=== PATIENT | female | born 1975 | race Caucasian/White ===

== ENCOUNTER 2021-02-23 08:09 | Emergency (ER) | payer SELFPAY ==
[~2021-02-23] VITALS: Ht 170.2 cm; Wt 54.4 kg
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
[2021-02-23] MEDS ORDERED: KETOROLAC TROMETHAMINE 15 MG/ML VIAL ONE (09:57)
[2021-02-23] MEDS ORDERED: KETOROLAC TROMETHAMINE INJ 30 MG/ML VIAL IM ONE (10:00)
[2021-02-23] MEDS ORDERED: IBUP-1955 PO (10:23)
[2021-02-23] MEDS ORDERED: CYCL5TAB PO (10:23)
--- NOTE | 2021-02-23 10:59 | NUR ---
Patient discharged to home in stable condition. Written and verbal after care instructions given. Patient verbalizes understanding of instruction.
[2021-02-23 11:10] VITALS: BP 116/78
== END 2021-02-23 11:11 | disposition home or self-care (01) ==
LOC: ER 08:21
DX: S20.212A Contusion of left front wall of thorax, initial encounter (principal); S40.812A Abrasion of left upper arm, initial encounter; S09.90XA Unspecified injury of head, initial encounter; M79.10 Myalgia, unspecified site; V49.49XA Driver injured in collision with other motor vehicles in traffic accident, initial encounter; Y93.89 Activity, other specified; Y92.89 Other specified places as the place of occurrence of the external cause; Y99.8 Other external cause status
CPT/HCPCS: 71045; 96372; 99283; J1885